=== PATIENT | male | born 1985 | race African-American/Black ===

== ENCOUNTER 2017-06-03 06:05 | Emergency (ER) | payer MEDICAID ==
[~2017-06-03] VITALS: Ht 172.7 cm; Wt 73.0 kg
[2017-06-03 08:21] VITALS: BP 104/62
== END 2017-06-03 08:25 | disposition home or self-care (01) ==
LOC: ER 06:05
DX: F20.9 Schizophrenia, unspecified (principal); F17.210 Nicotine dependence, cigarettes, uncomplicated; F15.10 Other stimulant abuse, uncomplicated
CPT/HCPCS: 99284

== ENCOUNTER 2017-06-03 12:29 | Emergency (ER) | payer MEDICAID ==
[~2017-06-03] VITALS: Ht 182.9 cm; Wt 80.0 kg
[2017-06-03 12:29] VITALS: BP 125/80
== END 2017-06-03 16:36 | disposition left against medical advice (07) ==
LOC: ER 12:29
DX: Z53.21 Procedure and treatment not carried out due to patient leaving prior to being seen by health care provider (principal)